=== PATIENT | female | born 1965 | race American Indian/Alaskan Native ===

== ENCOUNTER 2016-07-14 16:37 | Inpatient (IN) | payer MEDICAID ==
[2016-07-14] MEDS ORDERED: Sodium Chloride 0.9% 500 ML IV STA (17:36)
--- NOTE | 2016-07-14 18:15 | RAD ---
HISTORY: palpitations COMPARISON: No prior. TECHNIQUE: Chest PA and lateral FINDINGS: LUNGS: Hyperinflation, manifestations of COPD. No active pulmonary disease. PLEURA: No significant pleural effusion identified. No pneumothorax apparent. CARDIOVASCULAR: No radiographic findings to suggest acute or significant cardiovascular disease. OSSEOUS STRUCTURES: No significant abnormalities. VISUALIZED UPPER ABDOMEN: Normal. OTHER FINDINGS: None. IMPRESSION: No active disease.
[2016-07-14 18:17] LABS: BASO % 0.3 % (0.0-2.0); EOS % 0.1 % (0.0-4.0); HEMATOCRIT 41.8 % (34.0-47.0); LYMPH # 1.9 K/uL (1.0-4.3); LYMPH % 19.1 % (20.0-40.0); MEAN CELL VOLUME 85.7 fl (81.0-99.0); MEAN CORPUSCULAR HEMOGLOBIN 28.6 pg (27.0-31.0); MEAN CORPUSCULAR HGB CONC 33.3 g/dL (33.0-37.0); MEAN PLATELET VOLUME 9.1 fl (7.2-11.7); MONO % 10.7 % (0.0-10.0); NEUT # 6.8 K/uL (1.8-7.0); NEUT % 69.8 % (50.0-75.0); NRBC % 0.1 % (0.0-0.0); WHITE BLOOD COUNT 9.7 K/uL (4.8-10.8)
[2016-07-14 18:19] LABS: ALB/GLOB RATIO 1.3 (1.0-2.1); ALKALINE PHOSPHATASE 124 U/L (38-126); ALT/SGPT 25 U/L (9-52); AST/SGOT 25 U/L (14-36); BILIRUBIN,TOTAL 0.4 mg/dl (0.2-1.3); BLOOD UREA NITROGEN 15 mg/dl (7-17); CALCIUM 10.4 mg/dL (8.4-10.2); CARBON DIOXIDE 24 mmol/L (22-30); CHLORIDE 103 mmol/L (98-107); GFR AFRICAN-AMERICAN > 60; GLUCOSE,RANDOM 103 mg/dL (65-105); MAGNESIUM 1.7 MG/DL (1.6-2.3); PHOSPHOROUS 3.2 mg/dl (2.5-4.5); POTASSIUM 3.9 MMOL/L (3.6-5.0); SODIUM 143 mmol/l (132-148); TOTAL PROTEIN 8.5 G/DL (6.3-8.2)
[2016-07-14 18:21] LABS: RBC URINE 2 /hpf (0-3); URINE BILIRUBIN NEGATIVE (NEGATIVE); URINE BLOOD NEGATIVE (NEGATIVE); URINE COLOR STRAW (YELLOW); URINE GLUCOSE (UA) NEG (Normal); URINE KETONE NEGATIVE (NEGATIVE); URINE LEUKOCYTE ESTERASE NEG Leu/uL (Negative); URINE PROTEIN NEGATIVE (NEGATIVE); URINE UROBILINOGEN 0.2-1.0 mg/dL (0.2-1.0); WBC URINE 1 /hpf (0-5)
--- NOTE | 2016-07-14 18:43 | ED PDOC ---
HPI: Hypertension/Hypotension Time Seen by Provider: 07/14/16 16:54 Chief Complaint (Nursing): Palpitations Chief Complaint (Provider): Palpitations History Per: Patient History/Exam Limitations: no limitations Onset/Duration Of Symptoms: Hrs (x4) Current Symptoms Are (Timing): Still Present Associated Symptoms: denies: Chest Pain Quality Of Symptoms: Rapid Heart Rate Additional Complaint(s): 51 year old female presents to ED with complaints of palpitations x4 hours and a past medical history of HTN and hypercholesterolemia. Describes the palpitations as "heart racing" and notes accompanying diffuse trembles. (+) mild dizziness and chills, (-) chest pain, SOB, increased caffeine intake, cough /cold medicine usage, leg swelling, or increased stress. Notes that at the time of onset, patient was washing dishes. PCP: Dr. Norma Wynne Past Medical History Reviewed: Historical Data, Nursing Documentation, Vital Signs Vital Signs: Last Vital Signs Temp 98.3 F 07/14/16 16:45 Pulse 98 H 07/14/16 17:24 Resp 106 H 07/14/16 16:45 BP 158/82 H 07/14/16 16:45 Pulse Ox 100 07/14/16 16:45 - Medical History PMH: HTN, Hypercholesterolemia (x), Osteoporosis - Surgical History Surgical History: (x3) - Family History Family History: States: CAD (father had cardiac disease) - Social History Current smoker - smoking cessation education provided: No Ex-Smoker (has not smoked in the last 12 months): No Alcohol: None Drugs: Denies - Immunization History Hx Tetanus Toxoid Vaccination: No - Allergies Allergies/Adverse Reactions: Allergies Allergy/AdvReac Type Severity Reaction Status Date / Time No Known Allergies Allergy Verified 01/24/14 07:48 Review of Systems ROS Statement: Except As Marked, All Systems Reviewed And Found Negative Constitutional: Positive for: Chills Cardiovascular: Positive for: Palpitations. Negative for: Chest Pain Respiratory: Negative for: Shortness of Breath Musculoskeletal: Negative for: Leg Pain (leg swelling) Neurological: Positive for: Dizziness Physical Exam - Reviewed Nursing Documentation Reviewed: Yes Vital Signs Reviewed: Yes - Physical Exam Appears: Positive for: Non-toxic, No Acute Distress Head Exam: Positive for: ATRAUMATIC Skin: Positive for: Normal Color, Warm, Dry Eye Exam: Positive for: Normal appearance, EOMI, PERRL Neck: Positive for: Normal Cardiovascular/Chest: Negative for: Regular Rate, Rhythm (sinus tach, regular rate) Respiratory: Positive for: Normal Breath Sounds. Negative for: Respiratory Distress Gastrointestinal/Abdominal: Positive for: Normal Exam Extremity: Positive for: Normal ROM. Negative for: Deformity Neurologic/Psych: Positive for: Alert, Oriented. Negative for: Motor/Sensory Deficits - Laboratory Results Result Diagrams: 07/14/16 17:58 07/14/16 17:58 - ECG ECG Rhythm: Positive for: Sinus Rhythm Interpretation Of Abn EKG: T wave abnormality, T wave inversion in inferior, anterior, and lateral leads Rate: 98 O2 Sat by Pulse Oximetry: 100 (RA) Pulse Ox Interpretation: Normal Medical Decision Making Medical Decision Makin Initial impression: palpitations DDx: electrolyte abnormality, dehydration, arrhythmia, thyroid disease, anxiety Initial plan: * EKG * BNP * Labs * CPK * UDrug Screen * Magnesium * Phosphorus * TSH * Trop I * D Dimer * CXR * NS IV * UA Pt had orthostatic vitals signs (decreases BP with standing). IVF given. 2200 Pt continues to have tachycardia. Pt placed on Dr Lopez's Service (for Dr Wynne ) for persistent tachycardia. Requests Dr Hirsch Cardiology consult. Scribe Attestation: Documented by Katelyn Fuentes acting as a scribe for Janiya Thomas MD. Scribe Attestation: All medical record entries made by the Scribe were at my direction and personally dictated by me. I have reviewed the chart and agree that the record accurately reflects my personal performance of the history, physical exam, medical decision making, and the department course for this patient. I have also personally directed, reviewed, and agree with the discharge instructions and disposition. Disposition - Clinical Impression Clinical Impression: Palpitations, Tachycardia Discussed With DrGeovanna: Gianluca Lopez Doctor Will See Patient In The: Hospital Counseled Patient/Family Regarding: Studies Performed, Diagnosis - Disposition Disposition Time: 22:00 Condition: SERIOUS - Pt Status Changed To: Hospital Disposition Of: Observation - POA Present On Arrival: None
[2016-07-14 18:50] LABS: THYROID STIMULATING HORMONE 1.82 mIU/ML (0.46-4.68)
[2016-07-14] MEDS ORDERED: Metoprolol Succinate 25 mg XL Tab PO STA (22:16)
--- NOTE | 2016-07-15 11:34 | CP.PCM.HP ---
<Mirta Miranda - Last Filed: 07/15/16 11:32> History of Present Illness - History of Present Illness History of Present Illness: Evaluated with attending 51yo F with PMHx HTN and HLD admitted for palpitations and tachycardia. duration x1 day, resolved by time of evaluation. Denies current chest pain, palpitations, SOB. Denies prior cardiac hx, FHx significant for mother CAD. PMHx: as above SHx: NC FHx: mother CAD Allergies: NKDA Social hx: denies smoking, EtOH, drugs Present on Admission - Present on Admission Any Indicators Present on Admission: No Review of Systems - Constitutional Constitutional: absent: Chills, Fever - Cardiovascular Cardiovascular: Palpitations. absent: Chest Pain - Gastrointestinal Gastrointestinal: absent: Abdominal Pain, Diarrhea, Nausea, Vomiting - Genitourinary Genitourinary: absent: Dysuria, Hematuria - Musculoskeletal Musculoskeletal: absent: Back Pain - Neurological Neurological: absent: Headaches Past Patient History - Infectious Disease Hx of Infectious Diseases: None - Past Medical History & Family History Past Medical History?: Yes - Past Social History Alcohol: None Drugs: Denies - CARDIAC Hx Hypercholesterolemia: Yes (x) Hx Hypertension: Yes - MUSCULOSKELETAL/RHEUMATOLOGICAL Hx Osteoporosis: Yes - PSYCHIATRIC Hx Substance Use: No - SURGICAL HISTORY Hx Surgeries: Yes Hx Section: Yes - ANESTHESIA Hx Anesthesia: Yes Hx Anesthesia Reactions: No Hx Malignant Hyperthermia: No Meds Allergies/Adverse Reactions: Allergies Allergy/AdvReac Type Severity Reaction Status Date / Time No Known Allergies Allergy Verified 01/24/14 07:48 Physical Exam - Constitutional Appears: Non-toxic, No Acute Distress - Head Exam Head Exam: ATRAUMATIC, NORMAL INSPECTION - Eye Exam Eye Exam: Normal appearance - ENT Exam ENT Exam: Mucous Membranes Moist - Neck Exam Neck exam: Positive for: Normal Inspection - Respiratory Exam Respiratory Exam: Clear to Auscultation Bilateral - Cardiovascular Exam Cardiovascular Exam: REGULAR RHYTHM - GI/Abdominal Exam GI & Abdominal Exam: Normal Bowel Sounds, Soft - Extremities Exam Extremities exam: Positive for: normal inspection - Neurological Exam Neurological exam: Alert, Oriented x3 - Skin Skin Exam: Dry, Warm Results - Vital Signs Recent Vital Signs: Last Vital Signs Temp 98.7 F 07/15/16 08:21 Pulse 77 07/15/16 08:21 Resp 20 07/15/16 08:21 BP 131/94 H 07/15/16 08:21 Pulse Ox 99 07/15/16 08:21 - Labs Result Diagrams: 07/14/16 17:58 07/14/16 17:58 Labs: Laboratory Results - last 24 hr 07/15/16 07/15/16 00:30 08:41 Troponin I 0.0130 < 0.0120 Assessment & Plan - Assessment and Plan (Free Text) Assessment: 51yo F with PMHx HTN and HLD admitted for palpitations and tachycardia. palpitations and tachycardia -currently asymptomatic, HR normalized -cardio c/s, appreciate input -FU ECHO -FU stress test HTN -monitor BP DVT ppx -SCDs Decision To Admit - Pt Status Changed To: Hospital Disposition Of: Observation - . Bed Request Type: Telemetry Admitting Physician: Gianluca Lopez <Gianluca Lopez - Last Filed: 07/15/16 15:58> Results - Vital Signs Recent Vital Signs: Last Vital Signs Temp 98.7 F 07/15/16 14:14 Pulse 74 07/15/16 14:14 Resp 16 07/15/16 14:14 BP 129/87 07/15/16 14:14 Pulse Ox 99 07/15/16 08:21 - Labs Result Diagrams: 07/14/16 17:58 07/14/16 17:58 Labs: Laboratory Results - last 24 hr 07/15/16 07/15/16 00:30 08:41 Troponin I 0.0130 < 0.0120 Assessment & Plan - Assessment and Plan (Free Text) Assessment: Patient seen and examined with residents in rounds. Case, condition, investigative work up and plan discussed in detail. Agree with residents progress note. Plan: As ordered. (Gianluca Lopez MD)
--- NOTE | 2016-07-15 12:28 | CARD ---
APPROVED REPORT EKG Measurement Heart [id number] IN 140P53 [id number] <Conclusion> Normal sinus rhythm ST & T wave abnormality, consider inferior ischemia ST & T wave abnormality, consider anterolateral ischemia Abnormal ECG
--- NOTE | 2016-07-15 18:47 | CARD ---
APPROVED REPORT EXAM: Two-dimensional and M-mode echocardiogram with Doppler and color Doppler. Other Information Quality : GoodRhythm : NSR INDICATION Abnormal EKG/Arrhythmia 2D DIMENSIONS IVSd0.95 (0.7-1.1cm)LVDd3.70 (3.9-5.9cm) LVOT Diameter1.98 (1.8-2.4cm)PWd0.87 (0.7-1.1cm) IVSs1.12 (0.8-1.2cm)LVDs2.55 (2.5-4.0cm) FS (%) 31.1 %PWs1.25 (0.8-1.2cm) M-Mode DIMENSIONS Left Atrium (MM)2.96 (2.5-4.0cm)IVSd0.72 (0.7-1.1cm) Aortic Root3.01 (2.2-3.7cm)LVDd4.27 (4.0-5.6cm) Aortic Cusp Exc.2.11 (1.5-2.0cm)PWd0.88 (0.7-1.1cm) IVSs1.11 cmFS (%) 37 % LVDs2.68 (2.0-3.8cm)PWs1.08 cm Mitral Valve MV E Mevwqnmz59.5cm/sMV DECEL [id number] A Ewblcnci57.8cm/s MV GGW76viO/A ratio1.2MVA (PHT)4.16cm2 TDI Lateral E' Peak V11.24cm/sMedial E' Peak V11.08cm/sE/Lateral E'6.7 E/Medial E'6.8 Pulmonary Valve PV Peak Yorjueiw41.5cm/s Tricuspid Valve TR Peak Owdyoxuv886qb/sRAP [id number] Peak Gr.18mmHg [id number] LEFT VENTRICLE The left ventricle is normal size. There is normal left ventricular wall thickness. The left ventricular function is normal. The left ventricular ejection fraction is - 70%. There is normal LV segmental wall motion. The left ventricular diastolic function is normal. No left ventricle thrombus noted on this study. There is no ventricular septal defect visualized. There is no left ventricular aneurysm. There is no mass noted in the left ventricle. RIGHT VENTRICLE The right ventricle is normal size. There is normal right ventricular wall thickness. The right ventricular systolic function is normal. ATRIA The left atrium size is normal. There is no thrombus suspected in the left atrium. The right atrium size is normal. The interatrial septum is intact with no evidence for an atrial septal defect. AORTIC VALVE The aortic valve is normal in structure and function. No aortic regurgitation is present. There is no aortic valvular stenosis. MITRAL VALVE The mitral valve is normal in structure and function. There is no evidence of mitral valve prolapse. There is no mitral valve stenosis. Mitral regurgitation is trace. TRICUSPID VALVE The tricuspid valve is normal in structure and function. There is mild tricuspid regurgitation. Right ventricular systolic pressure is estimated at 29 mmHg. There is no tricuspid valve prolapse or vegetation. There is no tricuspid valve stenosis. PULMONIC VALVE The pulmonary valve is normal in structure and function. There is no pulmonic valvular regurgitation. GREAT VESSELS The aortic root is normal in size. The IVC is normal in size and collapses >50% with inspiration. PERICARDIAL EFFUSION The pericardium appears normal. There is no pleural effusion. <Conclusion> The left ventricle is normal in size and wall thickness. The left ventricular function is normal. The left ventricular ejection fraction is - 70%. The left atrium, right ventricle and right atrium are normal in size. The mitral, aortic and tricuspid valves are normal. There is trace mitral regurgitation and mild tricuspid regurgitation.
[2016-07-15 19:34] VITALS: BMI 29.1
--- NOTE | 2016-07-15 19:35 | CP.PCM.CON ---
History of Present Illness - History of Present Illness History of Present Illness: I was asked to see patient by Dr. Lopez. Patient is 51 year old female with a history of HTN, who presents with palpitations. The patient states she was ast home when she developed the onset of rapid heart rate. She did not have chest pain or dyspnea. She denied syncope. The patient presented to [facility] for further evaluation. The patient is s/p treadmill stress test which I have reviewed. Review of Systems - Constitutional Constitutional: absent: As Per HPI, Anorexia, Chills, Daytime Sleepiness, Excessive Sweating, Fatigue, Fever, Frequent Falls, Headache, Increased Appetite , Lethargy, Malaise, Night Sweats, Snoring, Sleep Apnea, Weight Gain, Weight Loss, Weakness, Other - EENT Eyes: absent: As Per HPI, Blind Spots, Blurred Vision, Change in Vision, Decreased Night Vision, Diplopia, Discharge, Dry Eye, Exophthalmos, Floaters, Irritation, Itchy Eyes, Loss of Peripheral Vision, Pain, Photophobia, Requires Corrective Lenses, Sees Flashes, Spots in Vision, Tunnel Vision, Other Visual Disturbances, Loss of Vision, Other Ears: absent: As Per HPI, Decreased Hearing, Ear Discharge, Ear Pain, Tinnitus, Abnormal Hearing, Disequilibrium, Dizziness, Other Nose/Mouth/Throat: absent: As Per HPI, Epistaxis, Nasal Congestion, Nasal Discharge, Nasal Obstruction, Nasal Trauma, Nose Pain, Post Nasal Drip, Sinus Pain, Sinus Pressure, Bleeding Gums, Change in Voice, Dental Pain, Dry Mouth, Dysphagia, Halitosis, Hoarsness, Lip Swelling, Mouth Lesions, Mouth Pain, Odynophagia, Sore Throat, Throat Swelling, Tongue Swelling, Facial Pain, Neck Pain, Neck Mass, Other - Breasts Breasts: absent: As Per HPI, Change in Shape, Mass, Pain, Nipple Discharge, Nipple Inversion, Skin Changes, Swelling, Other - Cardiovascular Cardiovascular: Palpitations - Respiratory Respiratory: absent: As Per HPI, Cough, Dyspnea, Hemoptysis, Dyspnea on Exertion , Wheezing, Snoring, Stridor, Pain on Inspiration, Chest Congestion, Excessive Mucous Production, Change in Mucous Color, Pain with Coughing, Other - Gastrointestinal Gastrointestinal: absent: As Per HPI, Abdominal Pain, Belching, Bloating, Change in Bowel Habits, Change in Stool Character, Coffee Ground Emesis, Constipation, Cramping, Diarrhea, Dyspepsia, Dysphagia, Early Satiety, Excessive Flatus, Fecal Incontinence, Heartburn, Hematemesis, Hematochezia, Loose Stools, Melena, Nausea, Odynophagia, Temesmus, Vomiting, Other - Genitourinary Genitourinary: absent: As Per HPI, Change in Urinary Stream, Difficulty Urinating, Dysuria, Flank Pain, Hematuria, Pyuria, Nocturia, Urinary Incontinence, Urinary Frequency, Urinary Hesitance, Urinary Urgency, Voiding Freq/Small Amts, Freq UTI, Hx Renal/Bladder Calculi, Hx /Renal Surgery, Bladder Distension, Other - Musculoskeletal Musculoskeletal: absent: As Per HPI, Abnormal Gait, Arthralgias, Atrophy, Back Pain, Deformity, Joint Swelling, Limited Range of Motion, Loss of Height, Muscle Cramps, Muscle Weakness, Myalgias, Neck Pain, Numbness, Radiating Pain into Limb, Stiffness, Tingling, Other - Integumentary Integumentary: absent: As Per HPI, Acne, Alopecia, Bleeding Lesions, Change in Hair, Change in Nails, Change in Pigmentation, Changing Lesions, Dry Skin, Erythema, Furuncle, Hirsutism, Lesions, New Lesions, Non-Healing Lesions, Photosensitivity, Pruritus, Rash, Skin Pain, Skin Ulcer, Sores, Striae, Swelling , Unusual Bruising, Wounds, Jaundice, Other - Neurological Neurological: absent: As Per HPI, Abnormal Gait, Abnormal Hearing, Abnormal Movements, Abnormal Speech, Behavioral Changes, Burning Sensations, Confusion, Convulsions, Disequilibrium, Dizziness, Numbness, Focal Weakness, Frequent Falls , Headaches, Lack of Coordination, Loss of Vision, Memory Loss, Paresthesias, Radicular Pain, Restless Legs, Sensory Deficit, Syncope, Tingling, Tremor, Vertigo, Weakness, Other Visual Disturbances, Other - Psychiatric Psychiatric: absent: As Per HPI, Abnormal Sleep Pattern, Anhedonia, Anxiety, Auditory Hallucinations, Behavioral Changes, Change in Appetite, Change in Libido, Confusion, Depression, Difficulty Concentrating, Hallucinations, Homicidal Ideation, Hopelessness, Irritability, Memory Loss, Mood Swings, Panic Attacks, Paranoia, Suicidal Ideation, Visual Hallucinations, Tactile Hallucinations, Other - Endocrine Endocrine: absent: As Per HPI, Change in Body Appearance, Change in Libido, Cold Intolorance, Deepening of Voice, Excessive Sweating, Fatigue, Flushing, Heat Intolorance, Increase in Ring/Shoe/Hat Size, Palpitations, Polydipsia, Polyphagia, Polyuria, Other - Hematologic/Lymphatic Hematologic: absent: As Per HPI, Easy Bleeding, Easy Bruising, Lymphadenopathy, Other Past Patient History - Infectious Disease Hx of Infectious Diseases: None - Past Medical History & Family History Past Medical History?: Yes - Past Social History Alcohol: None Drugs: Denies - CARDIAC Hx Cardiac Disorders: Yes - MUSCULOSKELETAL/RHEUMATOLOGICAL Hx Musculoskeletal Disorders: Yes - PSYCHIATRIC Hx Substance Use: No - SURGICAL HISTORY Hx Surgeries: Yes Hx Section: Yes - ANESTHESIA Hx Anesthesia: Yes Hx Anesthesia Reactions: No Hx Malignant Hyperthermia: No Meds Allergies/Adverse Reactions: Allergies Allergy/AdvReac Type Severity Reaction Status Date / Time No Known Allergies Allergy Verified 01/24/14 07:48 - Medications Medications: Current Medications Aspirin (Aspirin Chewable) 81 mg PO DAILY ANIKA Last Admin: 07/15/16 14:12 Dose: 81 mg Physical Exam - Constitutional Appears: Non-toxic - Head Exam Head Exam: NORMAL INSPECTION - Eye Exam Eye Exam: Normal appearance - ENT Exam ENT Exam: Mucous Membranes Moist - Neck Exam Neck exam: Positive for: Full Rom - Respiratory Exam Respiratory Exam: NORMAL BREATHING PATTERN - Cardiovascular Exam Cardiovascular Exam: REGULAR RHYTHM - GI/Abdominal Exam GI & Abdominal Exam: Normal Bowel Sounds - Rectal Exam Rectal Exam: Deferred - Extremities Exam Extremities exam: Negative for: calf tenderness, full ROM, joint swelling, normal capillary refill, normal inspection, pedal edema, tenderness, pedal pulses present - Back Exam Back exam: NORMAL INSPECTION - Neurological Exam Neurological exam: Alert, Oriented x3 - Psychiatric Exam Psychiatric exam: Normal Affect, Normal Mood - Skin Skin Exam: Normal Color Results - Vital Signs Recent Vital Signs: Last Vital Signs Temp 98.2 F 07/15/16 18:50 Pulse 72 07/15/16 18:50 Resp 18 07/15/16 18:50 BP 137/84 07/15/16 18:50 Pulse Ox 100 07/15/16 18:50 - Labs Result Diagrams: 07/14/16 17:58 07/14/16 17:58 Labs: Laboratory Results - last 24 hr 07/15/16 07/15/16 00:30 08:41 Troponin I 0.0130 < 0.0120 - EKG Data EKG Interpreted by: Myself EKG shows normal: Sinus rhythm Assessment & Plan (1) HTN (hypertension) Assessment and Plan: blood pressure control Status: Acute (2) Palpitations Assessment and Plan: Monitor overnight on telemetry Status: Acute (3) Abnormal stress electrocardiogram test Assessment and Plan: I reviewed the stress test tracings personally and discussed symptoms with the patient. THe patient experienced no symptoms during the test. The patient reached the beginning of Stage 3 of the Dick protocol. There was ST segment depression noted at peak exercise. This can be seen in patient's and although may be suggestive of ischemia, are likely not in the absence of symptoms. The patient's 10 year mortality is likely less than 10%. Nuclear imaging will increase the sensitivity of stress testing in the diagnosis of myocardial ischemia. If no symptoms, and no arrhythmia on telemetry overnight, recommend discharge home on ASA 81 mg daily. The patient is followed by Dr. Corona. I recommend schedule as an outpatient nuclear perfusion imaging. I have discussed my finidngs and recommendations in detail with the patient and her daughter. They both express understanding. Status: Acute
--- NOTE | 2016-07-15 19:35 | CARD ---
APPROVED REPORT Protocol: MIHAELA Test Type: Treadmill Stress Test Attending Physician: Dr. CALLOWAY Referring Physician: Dr. RILEY Technologist: Iram Carlos Test Indications: PALPITATION Medications: METOPROLOL 25MG, ASPIRIN 81MG, VITAMIN D ADVIL Medical History: HYPERTENSION, HYPERCHOLESTEROLEMIA, OSTEOPOROSIS Target HR: 167 bpm Resting ECG: normal Resting Heart Rate: 94 bpm Resting Blood Pressure: 144/88mmHg submaximum (85%): 142 bpm TEST SUMMARY [id number]. [id number]/88.0. PRETESTHYPERV.00:[id number]/88.0. PRETESTWARM-[id number]/88.0. EXERCISESTAGE 103:[id number]/60.0. EXERCISESTAGE 203:[id number]/60.0. EXERCISESTAGE 300:[id number]/60.0. [id number]/60.0. POST EXERCISE Reason for Termination: Target heart rate achieved Target HR: NoMax HR: 151 bpm91% of Maximum Predicted HR: 167 bpm Exercise duration: 3 Stage06:47 min:secExercise capacity: 8.2METs Max Blood Pressure: 188/60mmHg Blood Pressure response to exercise: normal resting BP - appropriate response Heart Rate response to exercise: appropriate Chest Pain: NononeAngina index: 0 Arrhythmia: Yesone PVC was noted ST Change: Yes2.0 mm Depression horizontalDeviation: 0 mm INTERPRETATION Stress EKG Conclusion: Positive stress test suggestive of ischemia
[2016-07-15] MEDS ORDERED: Pneumococcal 23-Valent Vaccine IM ONE (22:06)
[2016-07-16 07:55] LABS: BLOOD UREA NITROGEN 13 mg/dl (7-17); CALCIUM 9.3 mg/dL (8.4-10.2); CARBON DIOXIDE 27 mmol/L (22-30); CHLORIDE 105 mmol/L (98-107); CHOLESTEROL 173 mg/dL (0-199); GFR AFRICAN-AMERICAN > 60; GLUCOSE,RANDOM 85 mg/dL (65-105); SODIUM 142 mmol/l (132-148)
[2016-07-16 08:01] LABS: HEMATOCRIT 37.7 % (34.0-47.0); MEAN CELL VOLUME 85.9 fl (81.0-99.0); MEAN CORPUSCULAR HEMOGLOBIN 28.4 pg (27.0-31.0); MEAN CORPUSCULAR HGB CONC 33.1 g/dL (33.0-37.0); RED CELL DISTRIBUTION WIDTH 14.3 % (11.5-14.5); WHITE BLOOD COUNT 6.5 K/uL (4.8-10.8)
[2016-07-16] MEDS: Metoprolol Succinate 50 mg XL Tab PO SCH (09:30)
[2016-07-16] MEDS: Enoxaparin 40 mg Syringe SC SCH (09:31)
--- NOTE | 2016-07-16 10:17 | PN ---
DATE: 07/16/2016 The patient is seen and examined. Interim events noted. Consults noted, appreciated. Stress test r esult reviewed and it is positive. The patient feels okay. Denies any chest pain or shortness of br eath at rest. PHYSICAL EXAMINATION: GENERAL: The patient is in no acute distress. VITAL SIGNS: Stable. HEART: S1, S2 normal, regular. LUNGS: Good bilateral air entry. ABDOMEN: Soft, nontender. EXTREMITIES: No calf swelling, no tenderness, no acute ischemia, no edema. CENTRAL NERVOUS SYSTEM: Essentially unchanged. DIAGNOSTIC DATA: Available diagnostic data reviewed. As mentioned earlier, stress test is positive for ischemia. Cardiology followup is awaited. Case and plan and results discussed with patient and the patient's family at bedside at length. PLAN: As ordered. Gianluca Lopez MD cc: [id number] TT: 07/16/2016 10:17:00 Confirmation # [id number] Dictation # [id number] ks
[2016-07-16 10:51] LABS: THYROID STIMULATING HORMONE 2.71 mIU/ML (0.46-4.68)
--- NOTE | 2016-07-16 12:13 | CP.PCM.PN ---
Subjective - Date & Time of Evaluation Date of Evaluation: 07/16/16 Time of Evaluation: 12:05 - Subjective Subjective: patient felt chest pressure and palpitations last pm. Objective - Vital Signs/Intake and Output Vital Signs (last 24 hours): Temp Pulse Resp BP Pulse Ox 98.0 F 73 20 155/88 H 99 07/16/16 08:24 07/16/16 08:24 07/16/16 08:24 07/16/16 09:30 07/16/16 08:24 - Medications Medications: Current Medications Aspirin (Aspirin Chewable) 81 mg PO DAILY [facility] Last Admin: 07/15/16 14:12 Dose: 81 mg Enoxaparin Sodium (Lovenox) 40 mg SC DAILY [facility] PRN Reason: Protocol Last Admin: 07/16/16 09:31 Dose: 40 mg Metoprolol Succinate (Toprol Xl) 50 mg PO DAILY [facility] Last Admin: 07/16/16 09:30 Dose: 50 mg - Labs Labs: 07/16/16 06:00 07/16/16 06:00 - Constitutional Appears: Non-toxic - Head Exam Head Exam: NORMAL INSPECTION - Eye Exam Eye Exam: Normal appearance - ENT Exam ENT Exam: Mucous Membranes Moist - Neck Exam Neck Exam: Full ROM - Respiratory Exam Respiratory Exam: NORMAL BREATHING PATTERN - Cardiovascular Exam Cardiovascular Exam: REGULAR RHYTHM - GI/Abdominal Exam GI & Abdominal Exam: Normal Bowel Sounds - Rectal Exam Rectal Exam: Deferred - Extremities Exam Extremities Exam: Pedal Edema - Back Exam Back Exam: NORMAL INSPECTION - Neurological Exam Neurological Exam: Alert - Psychiatric Exam Psychiatric exam: Normal Affect - Skin Skin Exam: Normal Color Assessment and Plan (1) HTN (hypertension) Assessment & Plan: blood pressure control Status: Acute (2) Palpitations Assessment & Plan: patient had recurrent symptoms. will need cardiac cath Status: Acute (3) Abnormal stress electrocardiogram test Assessment & Plan: although previous consultation discussed possibility of outpatient management, the patient had recurrent chest pressure and palpitations last pm. The best couse of action is remaining hospitalized and scheduling cardiac catheterization for Monday. I discussed with the patient who agrees to remain hospitalized. NPO after midnight Monday for cardiac cath Monday. Status: Acute
--- NOTE | 2016-07-17 08:30 | PN ---
DATE: 07/17/2016 The patient seen and examined. Interim events noted. Consults noted, appreciated. Cardiology follo wup and interventions noted and appreciated. 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 Plan w as obtained and cardiac cath tomorrow. The patient feels okay. No chest pain, palpitation or shortness of breath. PHYSICAL EXAMINATION: GENERAL: The patient is in no acute distress. VITAL SIGNS: Stable. HEART: S1, S2 normal, regular. LUNGS: Good bilateral air exchange. ABDOMEN: Soft, nontender. EXTREMITIES: No edema, no calf swelling, no tenderness, no acute ischemia. CENTRAL NERVOUS SYSTEM: Essentially unchanged. DIAGNOSTIC DATA: Available reviewed. Telemetry monitoring does not reveal significant arrhythmia. Overall, patient's general medical condition is stable. The patient is for cardiac catheterization t omorrow. PLAN: As ordered. Case and plan discussed with patient. Gianluca Lopez MD cc: [id number] TT: 07/17/2016 08:29:21 Confirmation # [id number] Dictation # [id number] en
[2016-07-17 08:39] LABS: PARTIAL THROMBOPLASTIN TIME 28.1 SECONDS (23.3-32.5)
[2016-07-17] MEDS: Metoprolol Succinate 50 mg XL Tab PO SCH (09:44)
[2016-07-17] MEDS: Enoxaparin 40 mg Syringe SC SCH (09:45)
--- NOTE | 2016-07-17 10:05 | CP.PCM.PN ---
Subjective - Date & Time of Evaluation Date of Evaluation: 07/17/16 Time of Evaluation: 09:50 - Subjective Subjective: no chest pain last night Objective - Vital Signs/Intake and Output Vital Signs (last 24 hours): Temp Pulse Resp BP Pulse Ox 97.7 F 69 18 137/98 H 97 07/17/16 04:55 07/17/16 09:44 07/17/16 04:55 07/17/16 09:44 07/17/16 04:55 - Medications Medications: Current Medications Aspirin (Aspirin Chewable) 81 mg PO DAILY [facility] Last Admin: 07/17/16 09:45 Dose: 81 mg Enoxaparin Sodium (Lovenox) 40 mg SC DAILY [facility] PRN Reason: Protocol Last Admin: 07/17/16 09:45 Dose: 40 mg Metoprolol Succinate (Toprol Xl) 50 mg PO DAILY [facility] Last Admin: 07/17/16 09:44 Dose: 50 mg - Labs Labs: 07/16/16 06:00 07/16/16 06:00 PT 10.2 SECONDS (9.6-11.2) 07/17/16 06:00 INR 0.98 (0.92-1.08) 07/17/16 06:00 APTT 28.1 SECONDS (23.3-32.5) 07/17/16 06:00 - Constitutional Appears: Non-toxic - Head Exam Head Exam: NORMAL INSPECTION - Eye Exam Eye Exam: Normal appearance - ENT Exam ENT Exam: Mucous Membranes Moist - Neck Exam Neck Exam: Full ROM - Respiratory Exam Respiratory Exam: NORMAL BREATHING PATTERN - Cardiovascular Exam Cardiovascular Exam: REGULAR RHYTHM - GI/Abdominal Exam GI & Abdominal Exam: Normal Bowel Sounds - Rectal Exam Rectal Exam: Deferred - Extremities Exam Extremities Exam: absent: Pedal Edema - Back Exam Back Exam: NORMAL INSPECTION - Neurological Exam Neurological Exam: Alert - Psychiatric Exam Psychiatric exam: Normal Affect - Skin Skin Exam: Normal Color Assessment and Plan (1) HTN (hypertension) Assessment & Plan: blood pressure control Status: Acute (2) Palpitations Assessment & Plan: no events on telemetry thus far Status: Acute (3) Abnormal stress electrocardiogram test Assessment & Plan: will plan for cardiac cath tomorrow. Status: Acute
--- NOTE | 2016-07-18 08:08 | PN ---
DATE: 07/18/2016 The patient seen and examined. Interim events noted. Consults noted, appreciated. Cardiology follo wup and intervention noted and appreciated. The patient remains in progressive care unit on telemetr y monitoring. Denies any new chest pain, shortness of breath, or palpitation or dizziness. PHYSICAL EXAMINATION: GENERAL: The patient is in no acute distress. VITAL SIGNS: Stable. HEART: S1, S2 normal, regular. LUNGS: Good bilateral air exchange. ABDOMEN: Soft, nontender. EXTREMITIES: No edema, no calf swelling, no tenderness, no acute ischemia. CENTRAL NERVOUS SYSTEM: Essentially unchanged. DIAGNOSTIC DATA: Available reviewed. Telemetry monitoring does not reveal significant arrhythmia. Overall, patient's general medical condition is stable. The patient is for possible cardiac catheter ization today. PLAN: As ordered. Case and plan discussed with patient. Gianluca Lopez MD cc: [id number] TT: 07/18/2016 08:08:04 Confirmation # [id number] Dictation # [id number] en
[2016-07-18] MEDS: Metoprolol Succinate 50 mg XL Tab PO SCH (08:33)
[2016-07-18 12:22] VITALS: BP 120/81; PULSE 61; RESP 18; TEMP 97.8; O2SAT 98
== END 2016-07-18 14:30 | disposition home or self-care (01) | DRG 125 ==
LOC: H.ER 16:37 → H.ERHOLD 22:14 → H.TEL 07-15 18:48 → OBSVTOIN 07-16 01:43
PROVIDERS: ADMIT Internal Medicine; ATTEND Internal Medicine
PROC: 3E0234Z Introduction of Serum, Toxoid and Vaccine into Muscle, Percutaneous Approach (ICD-10-PCS; 2016-07-15)
PROC: 4A023N7 Measurement of Cardiac Sampling and Pressure, Left Heart, Percutaneous Approach (ICD-10-PCS; principal; 2016-07-18)
PROC: B205YZZ Plain Radiography of Left Heart using Other Contrast (ICD-10-PCS; 2016-07-18)
DX: R00.2 Palpitations (principal); I10 Essential (primary) hypertension; I47.9 Paroxysmal tachycardia, unspecified; R94.39 Abnormal result of other cardiovascular function study; E78.5 Hyperlipidemia, unspecified; E78.00 Pure hypercholesterolemia, unspecified; M81.0 Age-related osteoporosis without current pathological fracture; F41.9 Anxiety disorder, unspecified; E07.9 Disorder of thyroid, unspecified; Z23 Encounter for immunization; Z82.49 Family history of ischemic heart disease and other diseases of the circulatory system